=== PATIENT | female | born 1970 | race American Indian/Alaskan Native ===

== ENCOUNTER 2020-08-08 18:36 | Emergency (ER) | payer SELFPAY ==
[2020-08-08 18:57] VITALS: BP 136/55
--- NOTE | 2020-08-08 20:37 | Emergency Department Report ---
Chief Complaint: Urogenital-Female Stated Complaint: FEMALE PROBLEMS - HPI History of Present Illness: 50-year-old -[place] female presents to the emergency room complaining of vaginal discharge x2 days. She denies any pelvic pain no dysuria no nausea no vomiting no fever chills. Patient states she has has had no unprotected intercourse. Patient denies any past medical history. - Exam Vital Signs: Vital Signs 08/08/20 18:53 Temperature 99.0 F Pulse Rate 80 Respiratory 18 Rate Blood Pressure 136/55 O2 Sat by Pulse 100 Oximetry Physical Exam: Gen: alert oriented NAD Cardic: regular rate and rhythm no murmurs appreciated Resp: Clear to auscultation bilateral no wheezing no rales or rhonchi. Abdomen: Soft nontender nondistended normal bowel sounds. strengh 4/5 all extrimities, Alert and oriented time 3 Crainal nerve II-IIX intact MSE screening note: Focused history and physical exam performed. Due to findings the following was ordered: 50-year-old -[place] female presents to the emergency room complaining of vaginal discharge x2 days. She denies any pelvic pain no dysuria no nausea no vomiting no fever chills. Patient states she has has had no unprotected intercourse. Patient denies any past medical history. ED Disposition for MSE Disposition: Z- MED SCREENING EXAM-LEFT Is pt being admited?: No Does the pt Need Aspirin: No Condition: Stable Additional Instructions: Recommend to follow-up with her urgent care or primary care or [facility]. Referrals: [facility] [Provider Group] - 3-5 Days [facility] [Provider Group] - 3-5 Days [facility] [Provider Group] - 3-5 Days
== END 2020-08-08 21:07 | disposition left against medical advice (07) ==
LOC: ED 18:36
DX: Z00.8 Encounter for other general examination (principal); Z53.21 Procedure and treatment not carried out due to patient leaving prior to being seen by health care provider